=== PATIENT | female | born 1950 | race Caucasian/White ===

== ENCOUNTER 2019-08-01 11:27 | Outpatient (CLI) | payer MEDICARE, SELFPAY ==
--- NOTE | 2019-08-01 11:35 | CT_ITS ---
WS: [id number] CT ABDOMEN PELVIS TECHNIQUE: Noncontrast CT of the abdomen and pelvis with coronal and sagittal reformatted images. CLINICAL INFORMATION: GENERALIZED ABDOMINAL PAIN, LEFT FLANK PAIN COMPARISON: August 27, 2011 DLP: 1004.[address] scans at [facility] use at least one of these dose optimization techniques: automat ed exposure control; mA and/or kV adjustment per patient size (includes targeted exams where dose is matched to clinical indication); or iterative reconstruction. FINDINGS: Obstructing left UVJ calculus measuring 4 mm in the distal left ureter at the UVJ. Mild left ureterec tasis with mild left hydronephrosis. Mild inflammatory stranding and edema about the left kidney. No obstructing right renal or ureteral calculi. Both adrenal glands are normal. Noncontrast liver is normal. Normal gallbladder. Normal noncontrast spleen. Lung bases are well aerated. Normal GE junctio n. Normal caliber abdominal aorta. Dense vascular calcification. Diverticulosis. No evidence of small or large bowel obstruction. Mild right colon constipation. Sligh t anterolisthesis L3 on L4 and L4 on L5. CT/CT kidney stone [id number] IMPRESSION: 1. 4 mm retention calculus in the left UVJ with mild left ureterectasis and mi ld left hydronephrosis. Mild inflammatory stranding about the left kidney. 2. Mild constipation in the right colon and transverse colon. 3. Sigmoid diverticulosis. No evidence of acute diverticulitis.
== END 2019-08-01 11:28 | disposition home or self-care (01) ==
LOC: RADWPI 11:31
PROVIDERS: Family Provider Family Medicine; PCP Family Medicine; Visit Provider Family Medicine
DX: R10.84 Generalized abdominal pain (principal); N20.0 Calculus of kidney; K59.00 Constipation, unspecified; K57.30 Diverticulosis of large intestine without perforation or abscess without bleeding
CPT/HCPCS: 74176

== ENCOUNTER 2019-08-03 07:20 | Emergency (ER) | payer MEDICARE, SELFPAY ==
[2019-08-03 07:26] VITALS: BMI 23.1
[2019-08-03 07:29] VITALS: BP 156/106; PULSE 86; RESP 20; TEMP 37.1; O2SAT 98
--- NOTE | 2019-08-03 07:33 | W.ED.ABDPA2 ---
HPI - Abdominal Pain General: Chief Complaint: Abdominal Pain Stated Complaint: possible kidney stone Time Seen by Provider: 08/03/19 07:33 Source: patient Mode of arrival: ambulatory Limitations: no limitations History of Present Illness: HPI narrative: 69-year-old female comes in today with left lower abdominal pain. Patient reports diagnosis of renal calculi on 31 July, patient also reports no bowel movement for 5 days. Patient has a history of rheumatoid arthritis. Patient also takes medication for blood pressure. Patient was started on tamsulosin, Macrobid, and hydrocodone 5?3 25 for her renal stone on the second. Patient reported that she had improvement yesterday but pain returned this morning with worsening discomfort. Patient denied any fever or vomiting. Associated Symptoms: Reports constipation Review of Systems General: Reports: 10 or more systems reviewed and unremarkable except in HPI and below GI: Reports: abdominal pain (LLQ) and constipation : Reports: other (left ureteral kidney stone noted on CT from 08-01-19, ww) PFSH ED PFSH: Social History Smoking and tobacco status: current every day smoker Alcohol intake: never Physical Exam Const: COMMON NORMALS: no apparent distress and oriented x3 GENERAL APPEARANCE: cooperative HENMT: COMMON NORMALS: normocephalic, external ears normal, EAC's normal, TM's normal bilaterally and external nose normal HEAD & SCALP: normal to inspection and normocephalic FACE & SINUS: normal facial exam NOSE: external nose normal GENERAL EAR: hearing not grossly impaired EXTERNAL EAR: Yes external ears normal EXTERNAL AUDITORY CANAL: EAC's normal TYMPANIC MEMBRANE: TM's normal bilaterally MOUTH: oral and palatal mucosa normal THROAT: posterior oropharynx normal Eye: COMMON NORMALS: PERRL and EOMs intact bilaterally PUPIL: Yes PERRL Neck/C-Spine: COMMON NORMALS: full ROM and no lymphadenopathy Lymph: LYMPHATIC: no lymphedema noted Chest: COMMONS NORMALS: inspection of chest normal and palpation of chest normal Resp: COMMON NORMALS: normal respiratory effort and clear to auscultation bilaterally AUSCULTATION: clear to auscultation bilaterally Cardio: COMMON NORMALS: regular rate and regular rhythm RATE: regular rate RHYTHM: regular rhythm GI: COMMON NORMALS: normal to inspection, nondistended, normoactive bowel sounds AUSCULTATION: Yes normoactive bowel sounds PALPATION: Yes tender Details: LLQ : COMMON NORMALS: Yes no CVA tenderness BLADDER/KIDNEY EXAM: Yes no CVA tenderness Back/Pelvis: COMMON NORMALS: no CVA tenderness and thoracic and lumbar spine normal to inspection Extremity: COMMON NORMALS: normal to inspection GENERAL: No edema Neuro: COMMON NORMALS: oriented x3, moves all extremities and no focal motor deficits Psych: COMMON NORMALS: mental status grossly normal and cooperative Skin: COMMON NORMALS: no rashes or lesions noted GENERAL SKIN EXAM: no rashes or lesions noted Course ED course: 801, patient left prior to completion of services, she refused CT and became upset when nursing would not allow her anything to drink, patient left before I was able to speak with her. wjw Vital Signs: Vital signs: Vital Signs Temperature 98.8 F 08/03/19 07:29 Pulse Rate 86 08/03/19 07:29 Respiratory Rate 20 H 08/03/19 07:29 Blood Pressure 156/106 08/03/19 07:29 Pulse Oximetry 99 08/03/19 07:37 MDM - Abdominal Pain Lab Data: Labs: Lab Results 08/03/19 Range/Units 07:35 WBC 10.4 H (4.0-10.0) 10^3/ uL RBC 4.47 (4.1-5.3) 10^6/u L Hgb 14.3 (11.5-15.3) g/dL Hct 42.6 (37.0-47.0) % MCV 95.3 (81-99) fL MCH 32.0 (28.0-34.0) pg MCHC 33.6 (30.0-36.0) g/dL RDW 14.8 (12.1-15.1) % Plt Count 230 (130-400) 10^3/c mm MPV 11.0 H (7.4-10.4) fL Neut % (Auto) 76.5 % Lymph % (Auto) 8.4 % [place] % (Auto) 14.1 % Eos % (Auto) 0.4 % Baso % (Auto) 0.3 % Neut # (Auto) 8.0 H (1.8-7.7) 10^3/u L Lymph # (Auto) 0.9 (0.8-4.8) 10^3/u L [place] # (Auto) 1.5 H (0.2-0.9) 10^3/u L Eos # (Auto) 0.0 (0.0-0.8) 10^3/u L Baso # (Auto) 0.0 (0.0-0.1) 10^3/u L Nucleated RBC % (a uto) 0 % Nucleated RBCs # 0.0 /100WBC Discharge Plan Discharge Prescriptions: No Action Xeljanz 5 mg tablet 5 mg PO BID RF: 0 methotrexate sodium 2.5 mg tablet 15 mg PO .once a week RF: 0 aspirin [Adult Low Dose Aspirin] 81 mg tablet,delayed release (DR/EC) 81 mg PO DAILY RF: 0 folic acid 800 mcg tablet 0.8 mg PO DAILY RF: 0 amlodipine 10 mg tablet 10 mg PO DAILY RF: 0 atorvastatin 20 mg tablet 20 mg PO DAILY RF: 0 acetaminophen [Tylenol Extra Strength] 500 mg tablet 500 mg PO QID PRN (Reason: Pain, Mild) RF: 0 carvedilol 3.125 mg tablet 3.125 mg PO Q12H 90 Days Qty: 180 RF: 3 hydrocodone-acetaminophen 5-325 mg Tablet 1 tab PO Q6H PRN (Reason: Pain, Moderate) RF: 0 tamsulosin 0.4 mg Capsule 0.4 mg PO DAILY RF: 0 nitrofurantoin monohyd/m-cryst 100 mg Capsule 100 mg PO BID RF: 0 Xeljanz 5 mg tablet 10 mg PO DAILY RF: 0 Referrals: Sandra Moreno MD [Primary Care Provider] - Coding Level of Care Code ED Radiation Protection Technician for Chg Fwd Exam Comprehensive
[2019-08-03 07:37] VITALS: O2SAT 99
[2019-08-03 07:58] LABS: Basophils % 0.3 %; Eosinophils % 0.4 %; Hematocrit 42.6 % (37.0-47.0); Hemoglobin 14.3 g/dL (11.5-15.3); Lymphocytes # 0.9 10^3/uL (0.8-4.8); Lymphocytes % 8.4 %; Mean Corpuscular HGB Conc 33.6 g/dL (30.0-36.0); Mean Corpuscular Volume 95.3 fL (81-99); Monocytes # 1.5 10^3/uL (0.2-0.9); Monocytes % 14.1 %; Neutrophils % 76.5 %; Nucleated Red Blood Cells % 0 %; Platelet Count 230 10^3/cmm (130-400); Red Blood Count 4.47 10^6/uL (4.1-5.3); Red Cell Distribution Width 14.8 % (12.1-15.1); White Blood Count 10.4 10^3/uL (4.0-10.0)
[2019-08-03 08:14] LABS: Alanine Aminotransferase 21 U/L (0-33); Albumin Level 4.7 g/dL (3.5-5.2); Alkaline Phosphatase 85 IU/L (35-105); Aspartate Amino Transferase 19 U/L (0-32); Blood Urea Nitrogen 10 mg/dL (8-23); Carbon Dioxide 26 mmol/L (22-29); Chloride 103 mmol/L (98-107); Globulin 2.9 g/dL (1.3-4.6); Glomerular Filtration Rate 99.4 mL/min (90-130); Glucose 137 mg/dL (65-115); Osmolality Calculated 292 mOsm/kg (285-295); Sodium 142 mmol/L (136-145); Total Bilirubin 0.5 mg/dL (0.15-1.2); Total Protein 7.6 g/dL (6.6-8.7)
[2019-08-03 08:21] LABS: Specific Gravity, Urine 1.015 (1.005-1.030); Urine Appearance Clear (CLEAR); Urine Color Amber (Yellow); pH Urine 8 (5-7)
[2019-08-03 08:22] LABS: Add Urine Culture? Yes; Add Urine Microscopic? YES; Bacteria Urine 2+; Bilirubin Urine 1+ (NEGATIVE); Blood Urine 2+ (Negative); Glucose Urine UA Norm (Normal); Ketones Urine 2+ (Negative); Leukocyte Esterase Urine Negative (Negative); Nitrate Urine Negative (Negative); Protein Urine Trace (Negative); RBC Urine 0-4 /hpf (0-2); Squamous Epithelial Cell Urine 0-4 (0-5); Sulfosalicylic Acid Urine Negative; Urobilinogen Urine 1 mg/dL (Negative)
[2019-08-03 08:40] LABS: Lipase 47 U/L (13-60)
== END 2019-08-03 08:05 ==
LOC: ER 10:06
PROVIDERS: Emergency Provider Nurse Practitioner Family; Family Provider Family Medicine; PCP Family Medicine
DX: R10.9 Unspecified abdominal pain (principal); Z53.29 Procedure and treatment not carried out because of patient's decision for other reasons; F17.200 Nicotine dependence, unspecified, uncomplicated; E78.5 Hyperlipidemia, unspecified; I25.10 Atherosclerotic heart disease of native coronary artery without angina pectoris; I10 Essential (primary) hypertension; R00.1 Bradycardia, unspecified
CPT/HCPCS: 12345; 80053; 81001; 83690; 85025; 87086; 99283

== ENCOUNTER 2020-03-05 14:39 | Outpatient (CLI) | payer MEDICARE, SELFPAY ==
--- NOTE | 2020-03-05 14:50 | MM_ITS ---
WS: [id number] BILATERAL DIGITAL SCREENING MAMMOGRAPHY WITH CAD CLINICAL INFORMATION: SCREENING HISTORY: Screening mammogram. No current complaints. COMPARISON: None. TECHNIQUE: Bilateral CC and MLO views. FINDINGS: The breasts are composed of heterogeneous fibroglandular density tissue, which can limit the detectio n of small underlying mass lesions. No suspicious mass, asymmetry, calcifications, or architectural d istortion. No evidence of malignancy. Punctate and secretory calcifications. Clustered calcifications right breast. MM/[place] [id number] IMPRESSION: BI-RADS: 2-Benign FOLLOW UP: 1 Year Follow-up Recommend return to annual screening mammography.
== END 2020-03-05 14:40 | disposition home or self-care (01) ==
LOC: RADSHAW 14:46
PROVIDERS: PCP Family Medicine; Visit Provider Family Medicine
DX: Z12.31 Encounter for screening mammogram for malignant neoplasm of breast (principal)
CPT/HCPCS: 77067

== ENCOUNTER 2021-04-20 10:28 | Outpatient (CLI) | payer MEDICARE, SELFPAY ==
[2021-04-20 11:00] VITALS: BP 122/67; PULSE 66; RESP 18; TEMP 36.8; O2SAT 98
[2021-04-20 11:42] VITALS: BP 123/65; PULSE 60; RESP 17; TEMP 36.7; O2SAT 97
[2021-04-20 12:40] VITALS: BP 127/64; PULSE 63; RESP 17; TEMP 36.6; O2SAT 96
[2021-04-20 12:56] VITALS: BP 127/64; PULSE 63; RESP 17; TEMP 36.6
== END 2021-04-20 12:57 | disposition home or self-care (01) ==
LOC: OPS 10:29
PROVIDERS: PCP Family Medicine; Visit Provider Family Medicine
DX: U07.1 COVID-19 (principal)
CPT/HCPCS: 96365

== ENCOUNTER 2021-07-15 08:37 | Outpatient (CLI) | payer MEDICARE, SELFPAY ==
--- NOTE | 2021-07-15 09:05 | XRR_ITS ---
PROCEDURE INFORMATION: Exam: XR Chest Exam date and time: 07/15/2021 9:05 AM Age: 71 years old Clinical indication: Cough and shortness of breath; Patient HX: Chronic cough, chest pain RT side lower rib area; Additional info: Chronic cough, mob TECHNIQUE: Imaging protocol: XR of the chest. Views: 2 views. COMPARISON: CT kidney stone [id number] 08/01/2019 11:46 AM FINDINGS: Lungs: There is a left hilar mass measuring 58 x 26 mm. Pleural spaces: Unremarkable. No pleural effusion. No pneumothorax. Heart/Mediastinum: Unremarkable. No cardiomegaly. Bones/joints: Unremarkable. XR/XR chest 2V* [id number] IMPRESSION: Left hilar mass. Consider CT with contrast.
== END 2021-07-15 08:38 | disposition home or self-care (01) ==
PROVIDERS: PCP Family Medicine; Visit Provider Family Medicine
DX: R05.3 Chronic cough (principal); R91.8 Other nonspecific abnormal finding of lung field
CPT/HCPCS: 71046

== ENCOUNTER 2021-08-24 08:59 | Outpatient (CLI) | payer MEDICARE, SELFPAY ==
[2021-08-24 11:17] LABS: Alanine Aminotransferase 29 U/L (0-33); Albumin Level 3.4 g/dL (3.5-5.2); Alkaline Phosphatase 255 IU/L (35-105); Aspartate Amino Transferase 38 U/L (0-32); Blood Urea Nitrogen 13 mg/dL (8-23); Calcium 8.5 mg/dL (8.5-10.5); Carbon Dioxide 27 mmol/L (22-29); Chloride 101 mmol/L (98-107); Globulin 2.9 g/dL (1.3-4.6); Glomerular Filtration Rate 157.8 mL/min (90-130); Glucose 108 mg/dL (65-115); Osmolality Calculated 289 mOsm/kg (285-295); Sodium 139 mmol/L (136-145); Total Bilirubin 0.3 mg/dL (0.15-1.2); Total Protein 6.3 g/dL (6.6-8.7)
[2021-08-24 11:41] LABS: Hematocrit 25.8 % (37.0-47.0); Hemoglobin 8.3 g/dL (11.5-15.3); Mean Corpuscular HGB Conc 32.2 g/dL (30.0-36.0); Mean Corpuscular Hemoglobin 30.4 pg (28.0-34.0); Mean Corpuscular Volume 94.5 fl (81-99); Platelet Count 76 10^3/cmm (130-400); Red Blood Count 2.73 10^6/uL (4.1-5.3); Red Cell Distribution Width 14.4 % (12.1-15.1); White Blood Count 1.9 10^3/uL (4.0-10.0)
[2021-08-24 11:42] LABS: Slide Review Slide Review Perform
[2021-08-24 11:53] LABS: Band Neutrophils Absolute 0.1 10^3/cmm (0.0-1.2); Corrected White Blood Count 1.7 10^3/cmm (4.8-10.8); Eosinophils 3 %; Lymphocytes 52 %; Monocytes Absolute 0.2 10^3/cmm (0.1-0.6); Segmented Neutrophils 2 %; Total Cells Counted 100 (0-100)
[2021-08-24 11:55] LABS: Absolute Neutrophil 0.2 10^3/cmm (1.4-6.5)
[2021-08-24 12:36] LABS: Pathology Refferal Yes; Platelet Estimate Decreased (Normal)
[2021-08-29 20:44] LABS: Leuk/Lymp. Number of Markers 22; Leukemia/Lymph. Clinical Infor SEE ATTACHED; Leukemia/Lymph. Spec Type BLOOD; Leukemia/Lymph. Viability 67 %
== END 2021-08-24 09:00 | disposition home or self-care (01) ==
LOC: LAB 09:06
PROVIDERS: PCP Family Medicine; Visit Provider Internal Medicine Hematology & Oncology
DX: C34.90 Malignant neoplasm of unspecified part of unspecified bronchus or lung (principal)
CPT/HCPCS: 36415; 80053; 80503; 85007; 85025; 88184; 88185

== ENCOUNTER 2021-09-08 07:53 | Outpatient (CLI) | payer MEDICARE, SELFPAY ==
[2021-09-08 08:52] LABS: Basophils % 1.3 %; Hematocrit 24.1 % (37.0-47.0); Hemoglobin 7.7 g/dL (11.5-15.3); Lymphocytes # 0.8 10^3/uL (0.8-4.8); Lymphocytes % 24.3 %; Mean Corpuscular Hemoglobin 30.7 pg (28.0-34.0); Mean Platelet Volume 9.7 fL (7.4-10.4); Monocytes # 0.1 10^3/uL (0.2-0.9); Monocytes % 2.8 %; Neutrophils # 2.23 10^3/uL (1.8-7.7); Neutrophils % 70.3 %; Nucleated Red Blood Cells % 0 %; Platelet Count 149 10^3/cmm (130-400); Red Blood Count 2.51 10^6/uL (4.1-5.3); White Blood Count 3.2 10^3/uL (4.0-10.0)
[2021-09-08 09:48] LABS: Slide Review Slide Review Perform
== END 2021-09-08 07:54 | disposition home or self-care (01) ==
PROVIDERS: PCP Family Medicine; Visit Provider Internal Medicine Hematology & Oncology
DX: C34.90 Malignant neoplasm of unspecified part of unspecified bronchus or lung (principal)
CPT/HCPCS: 36415; 85025

== ENCOUNTER 2021-09-15 08:07 | Outpatient (CLI) | payer MEDICARE, SELFPAY ==
[2021-09-15 09:08] LABS: Hematocrit 23.3 % (37.0-47.0); Hemoglobin 7.3 g/dL (11.5-15.3); Mean Corpuscular HGB Conc 31.3 g/dL (30.0-36.0); Mean Corpuscular Hemoglobin 30.5 pg (28.0-34.0); Mean Corpuscular Volume 97.5 fl (81-99); Mean Platelet Volume 10.5 fL (7.4-10.4); Platelet Count 123 10^3/cmm (130-400); Red Blood Count 2.39 10^6/uL (4.1-5.3); Red Cell Distribution Width 18.2 % (12.1-15.1)
[2021-09-15 10:28] LABS: Slide Review Slide Review Perform
[2021-09-15 10:35] LABS: Lymphocytes 29 %; Monocytes Absolute 0.2 10^3/cmm (0.1-0.6); Segmented Neutrophils 50 %; Total Cells Counted 100 (0-100)
[2021-09-15 10:36] LABS: Corrected White Blood Count 1.9 10^3/cmm (4.8-10.8); Eosinophils 0 %; Lymphocytes Absolute 0.7 10^3/cmm (1.2-3.4); Platelet Estimate Normal (Normal)
[2021-09-15 10:37] LABS: Anisocytosis 1+; Macrocytosis 1+; Microcytosis Trace
== END 2021-09-15 08:08 | disposition home or self-care (01) ==
LOC: LAB 08:12
PROVIDERS: PCP Family Medicine; Visit Provider Family Medicine
DX: C34.90 Malignant neoplasm of unspecified part of unspecified bronchus or lung (principal)
CPT/HCPCS: 36415; 85007; 85025

== ENCOUNTER 2021-09-16 12:58 | Outpatient (CLI) | payer MEDICARE, SELFPAY ==
--- NOTE | 2021-09-16 13:13 | USCV_ITS ---
Laura Cabrera Age: 71 Gender: F : 1950 Exam Date: 09/16/2021 13:22 Ordering Phys: Ra TOD Abreu Technologist: RUBIN [place] [facility] [place]: Edema HISTORY: Lower extremity edema. PROCEDURES: Venous duplex imaging was performed in bilateral lower extremities. The following venous structures were evaluated: common femoral vein, profunda vein, proximal portion of the greater saphenous vein, superficial femoral vein, and the popliteal vein. In addition, the posterior tibial and peroneal trunk were evaluated. FINDINGS: Normal 2-D Doppler and augmentation and compressibility throughout the lower extremity venous structures. Additional imaging through the proximal calf veins also reveals no thrombus. Limited evaluation of the greater saphenous vein is patent with no thrombus. CONCLUSIONS No DVT bilateral lower extremities. Voicemail left as requested by landscape photographer at time of exam. Dr. Dolly Ramires DO (Electronically Signed) Final Date: 17 Sep 2021 07:35 S
== END 2021-09-16 12:59 | disposition home or self-care (01) ==
LOC: RAD 13:01
PROVIDERS: PCP Family Medicine; Visit Provider Internal Medicine Hematology & Oncology
DX: R60.0 Localized edema (principal)
CPT/HCPCS: 93970

== ENCOUNTER 2021-09-28 07:18 | Outpatient (CLI) | payer MEDICARE, SELFPAY ==
[2021-09-28 08:00] LABS: Alanine Aminotransferase 8 U/L (0-33); Albumin Level 3.5 g/dL (3.5-5.2); Alkaline Phosphatase 965 IU/L (35-105); Anion Gap 14.8 (5-19); Aspartate Amino Transferase 17 U/L (0-32); Blood Urea Nitrogen 5 mg/dL (8-23); Carbon Dioxide 23 mmol/L (22-29); Chloride 105 mmol/L (98-107); Globulin 2.9 g/dL (1.3-4.6); Glomerular Filtration Rate 157.8 mL/min (90-130); Glucose 108 mg/dL (65-115); Magnesium 2.1 mg/dL (1.7-2.3); Osmolality Calculated 286 mOsm/kg (285-295); Potassium 3.8 mmol/L (3.5-5.1); Sodium 139 mmol/L (136-145); Total Bilirubin 0.4 mg/dL (0.15-1.2); Total Protein 6.4 g/dL (6.6-8.7)
[2021-09-28 08:05] LABS: Hematocrit 32.4 % (37.0-47.0); Hemoglobin 9.2 g/dL (11.5-15.3); Mean Corpuscular HGB Conc 28.4 g/dL (30.0-36.0); Mean Corpuscular Hemoglobin 29.1 pg (28.0-34.0); Mean Corpuscular Volume 102.5 fl (81-99); Mean Platelet Volume 9.7 fL (7.4-10.4); Platelet Count 248 10^3/cmm (130-400); Red Blood Count 3.16 10^6/uL (4.1-5.3); Red Cell Distribution Width 19.2 % (12.1-15.1); White Blood Count 4.6 10^3/uL (4.0-10.0)
[2021-09-28 08:19] LABS: Slide Review Slide Review Perform
[2021-09-28 10:22] LABS: Absolute Neutrophil 2.6 10^3/cmm (1.4-6.5); Absolute Segmented Neutrophil 2.2 10/cmm (1.6-7.1); Band Neutrophils Absolute 0.4 10^3/cmm (0.0-1.2); Eosinophils 2 %; Lymphocytes 28 %; Monocytes Absolute 0.4 10^3/cmm (0.1-0.6); Platelet Estimate Normal (Normal); Polychromasia 1+; Segmented Neutrophils 47 %; Total Cells Counted 100 (0-100)
[2021-09-28 10:23] LABS: Anisocytosis 2+; Macrocytosis 2+; Microcytosis Trace; Ovalocytes 1+; Tear Drop Cells 2+
== END 2021-09-28 07:19 | disposition home or self-care (01) ==
LOC: LAB 07:24
PROVIDERS: PCP Family Medicine; Visit Provider Internal Medicine Hematology & Oncology
DX: Z51.11 Encounter for antineoplastic chemotherapy (principal); C34.90 Malignant neoplasm of unspecified part of unspecified bronchus or lung
CPT/HCPCS: 80053; 83735; 85007; 85025

== ENCOUNTER 2022-02-18 21:48 | Emergency (ER) | payer MEDICARE, SELFPAY ==
[2022-02-18 22:17] VITALS: BP 134/66; PULSE 92; RESP 15; TEMP 37.5; O2SAT 94; BMI 23.8
--- NOTE | 2022-02-18 22:45 | XRR_ITS ---
PROCEDURE INFORMATION: Exam: XR Chest Exam date and time: 02/18/2022 10:52 PM Age: 71 years old Clinical indication: Patient HX: High grade fever. Currently on chemotherapy. History of ovarian cancer. ; Additional info: Fever, chemotherapy PT TECHNIQUE: Imaging protocol: Radiologic exam of the chest. Views: 1 view. COMPARISON: CR XR chest 2V* [id number] 07/15/2021 9:06 AM FINDINGS: Lungs: The previous left perihilar mass is significantly smaller or has resolved. Mild atelectasis in the lung bases. The lungs are otherwise clear. Shallow inspiration. Probable emphysema. Pleural spaces: Unremarkable. No pleural effusion. No pneumothorax. Heart/Mediastinum: Unremarkable. No cardiomegaly. Bones/joints: Unremarkable. XR/XR chest 1V portable [id number] IMPRESSION: The previous left perihilar mass has significantly decreased or resolved. This most likely represents malignant neoplasm with favorable response to chemotherapy.
[2022-02-18 22:57] LABS: Eosinophils % 1.2 %; Hematocrit 33.1 % (37.0-47.0); Hemoglobin 10.7 g/dL (11.5-15.3); Lymphocytes # 0.4 10^3/uL (0.8-4.8); Lymphocytes % 17.3 %; Mean Corpuscular HGB Conc 32.3 g/dL (30.0-36.0); Mean Corpuscular Hemoglobin 28.9 pg (28.0-34.0); Mean Corpuscular Volume 89.5 fl (81-99); Monocytes # 0.1 10^3/uL (0.2-0.9); Neutrophils # 1.93 10^3/uL (1.8-7.7); Neutrophils % 77.5 %; Nucleated Red Blood Cells % 0 %; Platelet Count 65 10^3/cmm (130-400); White Blood Count 2.5 10^3/uL (4.0-10.0)
[2022-02-18] MEDS: sodium chloride 0.9% 1,000 ML 999 ML IV (23:02)
[2022-02-18 23:10] LABS: Alanine Aminotransferase 24 U/L (0-33); Albumin Level 3.6 g/dL (3.5-5.2); Alkaline Phosphatase 105 U/L (35-105); Anion Gap 13.3 (5-19); Aspartate Amino Transferase 20 U/L (0-32); Blood Urea Nitrogen 16 mg/dL (8-23); C Reactive Protein 51.2 mg/L (0.0-4.9); Calcium 8.2 mg/dL (8.5-10.5); Carbon Dioxide 26 mmol/L (22-29); Chloride 95 mmol/L (98-107); Glomerular Filtration Rate 157.8 mL/min (90-130); Glucose 82 mg/dL (65-115); Osmolality Calculated 270 mOsm/kg (285-295); Potassium 4.3 mmol/L (3.5-5.1); Sodium 130 mmol/L (136-145); Total Bilirubin 0.3 mg/dL (0.15-1.2); Total Protein 6.6 g/dL (6.6-8.7)
[2022-02-18 23:11] LABS: Lactate (Lactic Acid level) 1.6 mmol/L (0.5-2.2)
[2022-02-18 23:17] LABS: Procalcitonin 0.05 ng/mL (0-0.5)
[2022-02-18 23:21] LABS: Influenza A by IFA negative (Negative); Influenza B by IFA negative (Negative)
[2022-02-18 23:22] LABS: SARS Covid-2 Antigen positive (Negative)
[2022-02-18] MEDS: oxyCODONE-APAP 5-325 mg Tablet 2 TAB PO (23:56)
[2022-02-18] MEDS: piperacillin-tazobactam 4.5 GM in sodium chloride 0.9% (plus) 50 ML IV (23:56)
--- NOTE | 2022-02-19 00:30 | W.ED.FEVER ---
HPI - Fever General: Chief Complaint: Fever Stated Complaint: High fever Time Seen by Provider: 02/18/22 22:31 Source: patient and family History of Present Illness: 71-year-old female with a history of metastatic lung cancer. She presents with a fever of 103 at home. Temperature is broken now, but she is not feeling well. She has had some chills and sweats. She is not overly congested or short of breath, but she notes that she did not feel well yesterday either. No known sick contacts she says. Last chemotherapy induction, oral, was last week. MD elicited complaint: fever Pertinent past history: immunosuppression and other Onset (ago): hour(s) Context: other Exacerbating factors: nothing Relieving factors: nothing Associated symptoms: Reports chills and headache(s); Deny abdominal pain, flank pain, chest pain, confusion, cough, dysuria, nasal congestion, rhinorrhea or vomiting Treatments prior to arrival fever: none Review of Systems Const: Reports: chills ENMT: Denies: nasal congestion Card: Denies: chest pain GI: Denies: abdominal pain or vomiting : Denies: flank pain or dysuria Skin/Breast: Denies: rash Neuro: Reports: headache(s); Denies: confusion PFSH ED PFSH: Medical History (Updated 02/19/22 @ 00:35 by Sudheer Newton DO) ASHD (arteriosclerotic heart disease) Bradycardia Cystocele GERD (gastroesophageal reflux disease) Hyperlipidemia Hypertension Rheumatoid arthritis Urethrocele Surgical History H/O thumb surgery History of carpal tunnel surgery History of tonsillectomy Family History Mother Chronic kidney disease (CKD) Diabetes Other Hyperlipidemia Hypertension Denies family history of CAD (coronary artery disease) Clotting disorder Dementia Suicide Anesthesia complication Bleeding disorder Lung disease Cancer Stroke Social History Smoking and tobacco status: current every day smoker Alcohol intake: never Physical Exam Const: GENERAL APPEARANCE: cooperative, ill appearing (chronically. ) and frail appearing HENMT: COMMON NORMALS: normocephalic, atraumatic and Normal external nose present HEAD & SCALP: normocephalic and atraumatic FACE & SINUS: normal facial exam NOSE: Normal external nose present Eye: COMMON NORMALS: Equal, round and reactive pupils present and EOMs intact bilaterally PUPIL: Yes Equal, round and reactive pupils present Neck/C-Spine: COMMON NORMALS: full ROM and no meningeal signs Chest: CHEST: Yes Symmetrical chest wall rise Resp: COMMON NORMALS: normal respiratory effort, No use of accessory muscles and clear to auscultation bilaterally AUSCULTATION: clear to auscultation bilaterally Cardio: COMMON NORMALS: regular rate and regular rhythm RATE: regular rate RHYTHM: regular rhythm GI: COMMON NORMALS: Normal to inspection, nondistended, normoactive bowel sounds present and Soft to palpation PALPATION: Yes Soft to palpation Extremity: COMMON NORMALS: no pedal edema Neuro: AP COMA SCALE: document GCS findings Ap coma scale eye opening: Spontaneous [place] coma scale verbal response: Orientated Ap coma scale motor response: Obey commands [place] coma scale total score: 15 MENINGEAL SIGNS: Yes no meningeal signs Skin: COMMON NORMALS: no rashes or lesions noted GENERAL SKIN EXAM: no rashes or lesions noted Course Vital Signs: Vital signs: Vital Signs Temperature 99.5 F 02/18/22 22:17 Pulse Rate 92 02/18/22 22:17 Respiratory Rate 15 02/18/22 22:17 Blood Pressure 134/66 02/18/22 22:17 Pulse Oximetry 94 02/18/22 22:17 Oxygen Delivery Me thod 02/18/22 22:17 MDM - Fever Medical Decision Making White blood cell count is 2.5 with a platelet count of 65. Her hemoglobin is 10.7. ANC is 1.93. Sodium is 130. Creatinine is 0.4. Chest x-ray shows left perihilar mass that is significantly decreased. She is COVID-19 positive. She is flu negative. Her CRP is 51. COVID likely the cause of her temperature. She is not neutropenic. She is covered with antibiotics until above findings were confirmed. Blood cultures are pending. She will be allowed home on antivirals for COVID-19. She is to return for continued fevers or worsening symptoms. Lab Data : 02/18/22 22:40 02/18/22 22:40 Radiology Impressions Chest X-Ray 02/18/22 22:45 IMPRESSION: The previous left perihilar mass has significantly decreased or resolved. This most likely represents malignant neoplasm with favorable response to chemotherapy. Laboratory Results WBC 2.5 10^3/uL (4.0-10.0) L 02/18/22 22:40 RBC 3.70 10^6/uL (4.1-5.3) L 02/18/22 22:40 Hgb 10.7 g/dL (11.5-15.3) L 02/18/22 22:40 Hct 33.1 % (37.0-47.0) L 02/18/22 22:40 MCV 89.5 fl (81-99) 02/18/22 22:40 MCH 28.9 pg (28.0-34.0) 02/18/22 22:40 MCHC 32.3 g/dL (30.0-36.0) 02/18/22 22:40 RDW 15.0 % (12.1-15.1) 02/18/22 22:40 Plt Count 65 10^3/cmm (130-400) L 02/18/22 22:40 MPV 10.0 fL (7.4-10.4) 02/18/22 22:40 Neut % (Auto) 77.5 % 02/18/22 22:40 Lymph % (Auto) 17.3 % 02/18/22 22:40 [place] % (Auto) 4.0 % 02/18/22 22:40 Eos % (Auto) 1.2 % 02/18/22 22:40 Baso % (Auto) 0.0 % 02/18/22 22:40 Neut # (Auto) 1.93 10^3/uL (1.8-7.7) 02/18/22 22:40 Lymph # (Auto) 0.4 10^3/uL (0.8-4.8) L 02/18/22 22:40 [place] # (Auto) 0.1 10^3/uL (0.2-0.9) L 02/18/22 22:40 Eos # (Auto) 0.0 10^3/uL (0.0-0.8) 02/18/22 22:40 Baso # (Auto) 0.0 10^3/uL (0.0-0.1) 02/18/22 22:40 Nucleated RBC % (auto) 0 % 02/18/22 22:40 Nucleated RBCs # 0.0 /100WBC 02/18/22 22:40 Sodium 130 mmol/L (136-145) L 02/18/22 22:40 Potassium 4.3 mmol/L (3.5-5.1) 02/18/22 22:40 Chloride 95 mmol/L (98-107) L 02/18/22 22:40 Carbon Dioxide 26 mmol/L (22-29) 02/18/22 22:40 Anion Gap 13.3 (5-19) 02/18/22 22:40 BUN 16 mg/dL (8-23) 02/18/22 22:40 Creatinine 0.4 mg/dL (0.5-0.9) L 02/18/22 22:40 GFR Calculation 157.8 mL/min (90-130) H 02/18/22 22:40 Glucose 82 mg/dL (65-115) 02/18/22 22:40 Calculated Osmolality 270 mOsm/kg (285-295) L 02/18/22 22:40 Lactate 1.6 mmol/L (0.5-2.2) 02/18/22 22:40 Calcium 8.2 mg/dL (8.5-10.5) L 02/18/22 22:40 Total Bilirubin 0.3 mg/dL (0.15-1.2) 02/18/22 22:40 AST 20 U/L (0-32) 02/18/22 22:40 ALT 24 U/L (0-33) 02/18/22 22:40 Alkaline Phosphatase 105 U/L (35-105) 02/18/22 22:40 C-Reactive Protein 51.2 mg/L (0.0-4.9) H 02/18/22 22:40 Total Protein 6.6 g/dL (6.6-8.7) 02/18/22 22:40 Albumin 3.6 g/dL (3.5-5.2) 02/18/22 22:40 Globulin 3.0 g/dL (1.3-4.6) 02/18/22 22:40 Procalcitonin 0.05 ng/mL (0-0.5) 02/18/22 22:40 Influenza Type A Ag negative (Negative) 02/18/22 23:00 Influenza Type B Ag negative (Negative) 02/18/22 23:00 SARS-CoV-2 Ag (Rapid) positive (Negative) 02/18/22 23:00 Discharge Plan Discharge Patient Disposition: Home Clinical Impression: COVID-19 Condition: Stable Prescriptions: New Paxlovid (EUA) 300 mg (150 mg x 2)-100 mg tablets,dose pack See Rx Instructions .ROUTE .COMPLEX Qty: 30 0RF Rx Instructions: take TWO 150 mg tablets of nirmatrelvir with ONE 100 mg tablet of ritonavir twice daily for 5 days No Action Xeljanz 5 mg tablet 5 mg PO BID aspirin [Adult Low Dose Aspirin] 81 mg tablet,delayed release (DR/EC) 81 mg PO DAILY acetaminophen [Tylenol Extra Strength] 500 mg tablet 500 mg PO QID PRN (Reason: Pain, Mild) folic acid 800 mcg tablet 0.4 mg PO DAILY methotrexate sodium 2.5 mg tablet 15 mg PO .weekly calcium carbonate-vitamin D3 600 mg calcium- 200 unit capsule 1 cap PO .every other day amlodipine 10 mg tablet 10 mg PO DAILY Qty: 90 1RF Rx Instructions: Must be seen for further refills atorvastatin 20 mg tablet 20 mg PO DAILY Qty: 30 0RF Rx Instructions: Needs appt for future refills Discharge Orders: Discharge ED (Routine); Ordered 02/19/22 Ordered By: Sudheer Newton Referrals: Sandra Moreno MD [Primary Care Provider] - 1-3 days Patient Instructions: COVID-19 (Coronavirus Disease 2019) (ED), Opioid Safety, Pain Management Activity Restrictions/Additional Instructions: Check your temperature every 4 hours while awake and treat accordingly. Medication as directed. Return for any worsening symptoms such as shortness of breath, inability to control temperature, worsening lethargy, mental status changes, or any other concerns. Call your oncologist on Monday and let them know you were diagnosed with COVID-19 as a source of your fever, and that your white blood cell count was not dangerously low. Coding Level of Care Code ED Overlock Collar Setter for Sandip Fwd Exam Comprehensive
[2022-02-19] MEDS: acetaminophen 325 mg Tablet 650 MG PO (01:41)
== END 2022-02-19 01:42 | disposition home or self-care (01) ==
PROVIDERS: Emergency Provider Emergency Medicine; PCP Family Medicine
DX: U07.1 COVID-19 (principal); C34.90 Malignant neoplasm of unspecified part of unspecified bronchus or lung; D84.821 Immunodeficiency due to drugs; T45.1X5A Adverse effect of antineoplastic and immunosuppressive drugs, initial encounter; F17.200 Nicotine dependence, unspecified, uncomplicated; Z79.82 Long term (current) use of aspirin
CPT/HCPCS: 71045; 80053; 83605; 84145; 85025; 86140; 87040; 87426; 87804; 96374; 99284; J2543; J7030

== ENCOUNTER 2022-02-25 09:52 | Outpatient (CLI) | payer MEDICARE, SELFPAY ==
[2022-02-25 10:28] LABS: Eosinophils % 0.9 %; Hematocrit 32.7 % (37.0-47.0); Hemoglobin 10.3 g/dL (11.5-15.3); Lymphocytes # 0.4 10^3/uL (0.8-4.8); Lymphocytes % 19.1 %; Mean Corpuscular HGB Conc 31.5 g/dL (30.0-36.0); Mean Corpuscular Hemoglobin 27.9 pg (28.0-34.0); Mean Corpuscular Volume 88.6 fl (81-99); Mean Platelet Volume 9.6 fL (7.4-10.4); Monocytes # 0.7 10^3/uL (0.2-0.9); Monocytes % 30.2 %; Neutrophils # 1.05 10^3/uL (1.8-7.7); Neutrophils % 48.9 %; Nucleated Red Blood Cells % 0 %; Platelet Count 90 10^3/cmm (130-400); Red Blood Count 3.69 10^6/uL (4.1-5.3); Red Cell Distribution Width 15.3 % (12.1-15.1); White Blood Count 2.2 10^3/uL (4.0-10.0)
[2022-02-25 10:59] LABS: Alanine Aminotransferase 25 U/L (0-33); Albumin Level 3.2 g/dL (3.5-5.2); Alkaline Phosphatase 124 U/L (35-105); Aspartate Amino Transferase 29 U/L (0-32); Blood Urea Nitrogen 11 mg/dL (8-23); Calcium 8.7 mg/dL (8.5-10.5); Carbon Dioxide 27 mmol/L (22-29); Chloride 98 mmol/L (98-107); Globulin 3.5 g/dL (1.3-4.6); Glucose 135 mg/dL (65-115); Osmolality Calculated 279 mOsm/kg (285-295); Sodium 134 mmol/L (136-145); Total Bilirubin 0.4 mg/dL (0.15-1.2); Total Protein 6.7 g/dL (6.6-8.7)
== END 2022-02-25 09:53 | disposition home or self-care (01) ==
LOC: LAB 09:52
PROVIDERS: PCP Family Medicine; Visit Provider Internal Medicine Hematology & Oncology
DX: C80.1 Malignant (primary) neoplasm, unspecified (principal)
CPT/HCPCS: 36415; 80053; 85025

== ENCOUNTER 2022-03-14 10:30 | Outpatient (CLI) | payer MEDICARE, SELFPAY ==
[2022-03-14 11:00] LABS: Basophils % 0.3 %; Hematocrit 34.7 % (37.0-47.0); Hemoglobin 10.8 g/dL (11.5-15.3); Lymphocytes # 0.4 10^3/uL (0.8-4.8); Mean Corpuscular HGB Conc 31.1 g/dL (30.0-36.0); Mean Corpuscular Hemoglobin 26.8 pg (28.0-34.0); Mean Corpuscular Volume 86.1 fl (81-99); Mean Platelet Volume 9.3 fL (7.4-10.4); Monocytes % 0.7 %; Neutrophils # 2.53 10^3/uL (1.8-7.7); Neutrophils % 84.3 %; Nucleated Red Blood Cells % 0 %; Platelet Count 236 10^3/cmm (130-400); Red Blood Count 4.03 10^6/uL (4.1-5.3); Red Cell Distribution Width 15.2 % (12.1-15.1)
[2022-03-14 11:15] LABS: Slide Review Slide Review Perform
[2022-03-14 11:16] LABS: Alanine Aminotransferase 34 U/L (0-33); Albumin Level 3.3 g/dL (3.5-5.2); Alkaline Phosphatase 95 U/L (35-105); Anion Gap 15.1 (5-19); Aspartate Amino Transferase 41 U/L (0-32); Blood Urea Nitrogen 12 mg/dL (8-23); Calcium 9.1 mg/dL (8.5-10.5); Carbon Dioxide 21 mmol/L (22-29); Chloride 99 mmol/L (98-107); Globulin 3.6 g/dL (1.3-4.6); Glucose 102 mg/dL (65-115); Osmolality Calculated 272 mOsm/kg (285-295); Potassium 4.1 mmol/L (3.5-5.1); Sodium 131 mmol/L (136-145); Total Bilirubin 0.4 mg/dL (0.15-1.2); Total Protein 6.9 g/dL (6.6-8.7)
== END 2022-03-14 10:31 | disposition home or self-care (01) ==
LOC: LAB 10:34
PROVIDERS: PCP Family Medicine; Visit Provider Family Medicine
DX: C34.90 Malignant neoplasm of unspecified part of unspecified bronchus or lung (principal)
CPT/HCPCS: 36415; 80053; 85025

== ENCOUNTER 2022-03-21 09:42 | Outpatient (CLI) | payer MEDICARE, SELFPAY ==
[2022-03-21 10:29] LABS: Hematocrit 28.8 % (37.0-47.0); Lymphocytes # 0.4 10^3/uL (0.8-4.8); Lymphocytes % 67.9 %; Mean Corpuscular HGB Conc 31.3 g/dL (30.0-36.0); Mean Corpuscular Hemoglobin 26.9 pg (28.0-34.0); Mean Platelet Volume 10.8 fL (7.4-10.4); Monocytes # 0.1 10^3/uL (0.2-0.9); Monocytes % 11.3 %; Neutrophils % 20.8 %; Nucleated Red Blood Cells % 0 %; Positive C 1; Red Blood Count 3.35 10^6/uL (4.1-5.3)
[2022-03-21 10:41] LABS: Platelet Count 27 10^3/cmm (130-400); White Blood Count 0.5 10^3/uL (4.0-10.0)
[2022-03-21 10:42] LABS: Neutrophils # 0.11 10^3/uL (1.8-7.7); Slide Review Slide Review Perform
[2022-03-21 10:50] LABS: Alanine Aminotransferase 15 U/L (0-33); Albumin Level 3.3 g/dL (3.5-5.2); Alkaline Phosphatase 78 U/L (35-105); Anion Gap 15.8 (5-19); Aspartate Amino Transferase 11 U/L (0-32); Blood Urea Nitrogen 17 mg/dL (8-23); Calcium 8.7 mg/dL (8.5-10.5); Carbon Dioxide 22 mmol/L (22-29); Chloride 105 mmol/L (98-107); Globulin 3.2 g/dL (1.3-4.6); Glomerular Filtration Rate 157.8 mL/min (90-130); Glucose 122 mg/dL (65-115); Osmolality Calculated 291 mOsm/kg (285-295); Potassium 3.8 mmol/L (3.5-5.1); Sodium 139 mmol/L (136-145); Total Bilirubin 0.3 mg/dL (0.15-1.2); Total Protein 6.5 g/dL (6.6-8.7)
== END 2022-03-21 09:43 | disposition home or self-care (01) ==
PROVIDERS: PCP Family Medicine; Visit Provider Internal Medicine Hematology & Oncology
DX: C34.90 Malignant neoplasm of unspecified part of unspecified bronchus or lung (principal)
CPT/HCPCS: 36415; 80053; 85025